=== PATIENT | male | born 1990 | race Caucasian/White ===

== ENCOUNTER → 2019-08-25 | Outpatient (CLI) | payer OTHER ==
--- NOTE | 2019-08-25 14:23 | KCIC ---
Three-view left ankle and foot radiographs 08/25/2019 CLINICAL HISTORY: Left ankle and foot injury. AP, oblique and lateral digital radiographs of the left ankle and left foot were obtained. The left ankle mortise is intact. Soft tissue swelling is seen adjacent to the lateral malleolus of the left ankle. No acute fracture or dislocation of the left ankle is seen. No acute fracture or dislocation of the left foot is noted. IMPRESSION: No acute fracture or dislocation of the left foot or ankle is seen. Electronically signed by: Emmanuel Martinez MD (08/25/2019 2:20 PM) [id number]
== END | disposition home or self-care (01) ==
LOC: KCIC 13:29
DX: S99.822A Other specified injuries of left foot, initial encounter (principal); X58.XXXA Exposure to other specified factors, initial encounter; Y93.9 Activity, unspecified; Y92.89 Other specified places as the place of occurrence of the external cause; Y99.8 Other external cause status
CPT/HCPCS: 73610; 73630